=== PATIENT | male | born 1955 | race Caucasian/White ===

== ENCOUNTER → 2022-02-11 12:04 | Outpatient (BNVA) | payer MEDICARE, BC, SELFPAY | PROVIDERS: Visit Provider Nurse Practitioner Family | DX: I10 Essential (primary) hypertension (principal); J32.0 Chronic maxillary sinusitis; R05.9 Cough, unspecified; J45.909 Unspecified asthma, uncomplicated; E11.9 Type 2 diabetes mellitus without complications; Z11.52 Encounter for screening for COVID-19 | CPT/HCPCS: 80053; 87635 ==

== ENCOUNTER 2022-10-01 20:57 | Emergency (ER) | payer MEDICARE, BC, SELFPAY ==
--- NOTE | 2022-10-01 21:05 | XRR_ITS ---
PROCEDURE INFORMATION: Exam: XR Chest Exam date and time: 10/01/2022 10:33 PM Age: 67 years old Clinical indication: Other: General weakness TECHNIQUE: Imaging protocol: Radiologic exam of the chest. Views: 1 view. COMPARISON: No relevant prior studies available. FINDINGS: Lungs: See Heart/Mediastinum finding. Pleural spaces: Unremarkable. No pleural effusion. No pneumothorax. Heart/Mediastinum: Cardiomegaly and mild pulmonary vascular congestion. Bones/joints: Unremarkable. XR/XR chest 1V portable [id number] IMPRESSION: Cardiomegaly and mild pulmonary vascular congestion.
[2022-10-01 21:16] LABS: Basophils # 0.1 10^3/uL (0.0-0.1); Basophils % 0.4 %; Eosinophils % 0.1 %; Hematocrit 33.9 % (42.0-52.0); Hemoglobin 11.1 g/dL (11.7-16.6); Mean Corpuscular HGB Conc 32.7 g/dL (30.0-36.0); Mean Corpuscular Hemoglobin 26.4 pg (28.0-34.0); Mean Corpuscular Volume 80.5 fl (80-94); Mean Platelet Volume 11.6 fL (7.4-10.4); Monocytes # 0.8 10^3/uL (0.2-0.9); Monocytes % 6.6 %; Neutrophils # 10.71 10^3/uL (1.8-7.7); Neutrophils % 84.5 %; Nucleated Red Blood Cells % 0 %; Platelet Count 160 10^3/cmm (130-400); Red Blood Count 4.21 10^6/uL (4.1-5.3); Red Cell Distribution Width 14.6 % (12.1-15.1); White Blood Count 12.7 10^3/uL (4.0-10.0)
[2022-10-01 21:31] VITALS: BP 132/71; PULSE 90; RESP 19; TEMP 38.3; O2SAT 96; BMI 35.2
[2022-10-01 21:37] LABS: Alanine Aminotransferase 18 U/L (0-41); Albumin Level 4.2 g/dL (3.5-5.2); Alkaline Phosphatase 100 U/L (40-130); Anion Gap 21.6 (5-19); Aspartate Amino Transferase 17 U/L (0-40); Blood Urea Nitrogen 17 mg/dL (8-23); Calcium 9.1 mg/dL (8.5-10.5); Carbon Dioxide 21 mmol/L (22-29); Chloride 91 mmol/L (98-107); Globulin 2.8 g/dL (1.3-4.6); Glomerular Filtration Rate 60.6 mL/min (90-130); Glucose 150 mg/dL (65-115); Osmolality Calculated 272 mOsm/kg (285-295); Potassium 4.6 mmol/L (3.5-5.1); Sodium 129 mmol/L (136-145)
--- NOTE | 2022-10-01 21:37 | ECG_ITS ---
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 Measurements Intervals Lucas Rate: 93 P: -1 AR: 208 QRS: 57 QRSD: 84 T: 12 QT: 317 QTc: 396 Interpretive Statements SINUS RHYTHM No previous ECG available for comparison Electronically Signed On 10-02-2022 14:22:08 REGIONAL LIAISON by Paul Decker M.D. [id number]
--- NOTE | 2022-10-01 23:18 | CTR_ITS ---
PROCEDURE INFORMATION: Exam: CT Head Without Contrast Exam date and time: 10/01/2022 11:43 PM Age: 67 years old Clinical indication: Syncope and collapse; Patient HX: Syncope with fall yesterday. C/O general weakness. Denies any head pain. ; Additional info: AMS TECHNIQUE: Imaging protocol: Computed tomography of the head without contrast. Radiation optimization: All CT scans at this facility use at least one of these dose optimization techniques: automated exposure control; mA and/or kV adjustment per patient size (includes targeted exams where dose is matched to clinical indication); or iterative reconstruction. REPORTING DATA: Count of CT and Cardiac NM exams in prior 12 months: This patient has received 0 known CTs and 0 known cardiac nuclear medicine studies in the 12 months prior to the current study. COMPARISON: No relevant prior studies available. RADIATION DOSE METRICS: Total DLP (mGy-cm): 1075.28 FINDINGS: Brain: Normal. No hemorrhage. Unremarkable white matter. No mass effect. Cerebral ventricles: No ventriculomegaly. Paranasal sinuses: Paranasal sinus opacifications. Mastoid air cells: Visualized mastoid air cells are well aerated. Bones/joints: Unremarkable. No acute fracture. Soft tissues: Unremarkable. CT/CT head wo con* [id number] IMPRESSION: Negative for intracranial hemorrhage or mass effect.
[2022-10-01] MEDS: acetaminophen 325 mg Tablet 650 MG PO (23:39)
--- NOTE | 2022-10-01 23:39 | ED_ITS ---
HPI - Weakness General: Chief complaint: Weakness Stated complaint: fall, weakness Time Seen by Provider: 10/01/22 22:24 Source: patient and EMS Mode of arrival: EMS Limitations: no limitations History of Present Illness: 67-year-old male states he has been having some generalized weakness throughout the day states he went outside to do some work and had a near syncopal event he states that he is just felt weaker and had a harder time walking he had a mild headache he denies any vomiting or diarrhea he has had a low-grade fever at home he is febrile here as well. He denies any neck pain denies any worsening improving factors. Associated symptoms: Reports fever(s); Denies chest pain, dysuria, easy bruising, headache(s), nausea or vomiting Review of Systems Const: Reports: fever(s), fatigue and malaise Eyes: Denies: blurry vision or eye discomfort ENMT: Denies: throat pain or dental pain Card: Denies: chest pain Resp: Denies: dyspnea GI: Denies: abdominal pain, nausea, vomiting or diarrhea : Denies: dysuria Musc: Denies: neck pain or back pain Skin/Breast: Denies: rash Neuro: Denies: headache(s) Psych: Denies: depression Armando/Lymph: Denies: easy bruising All/Imm: Denies: urticaria PFSH ED PFSH: Medical History Asthma Diabetes GERD (gastroesophageal reflux disease) Hypertension Restless leg Social History Smoking and tobacco status: never smoked Physical Exam Const: COMMON NORMALS: no acute distress, patient oriented x3 and healthy appearing HENMT: COMMON NORMALS: normocephalic and atraumatic HEAD & SCALP: normocephalic and atraumatic Eye: COMMON NORMALS: Equal, round and reactive pupils present and EOMs intact bilaterally PUPIL: Yes Equal, round and reactive pupils present Neck/C-Spine: COMMON NORMALS: full ROM and supple Chest: COMMONS NORMALS: normal inspection of the chest and normal palpation of entire chest wall Resp: COMMON NORMALS: normal respiratory effort, No retractions, No use of accessory muscles and clear to auscultation bilaterally AUSCULTATION: clear t o auscultation bilaterally Cardio: COMMON NORMALS: regular rate, regular rhythm and No murmurs present (Cardio) RATE: regular rate RHYTHM: regular rhythm GI: COMMON NORMALS: Normal to inspection, nondistended, normoactive bowel sounds present, Soft to palpation, non-tender and no masses PALPATION: Yes Soft to palpation Extremity: COMMON NORMALS: normal to inspection and full ROM Neuro: COMMON NORMALS: patient oriented x3, moves all extremities and no focal motor deficits Psych: COMMON NORMALS: mental status grossly normal, Normal thought process present and cooperative THOUGHT PROCESS: Normal thought process present Skin: COMMON NORMALS: no rashes or lesions noted and no wounds GENERAL SKIN EXAM: no rashes or lesions noted Course Vital Signs: Vital signs: Vital Signs Temperature 100.9 F H 10/01/22 21:31 Pulse Rate 86 10/02/22 00:39 Respiratory Rate 22 H 10/02/22 00:39 Blood Pressure 117/53 10/02/22 00:39 Pulse Oximetry 93 10/02/22 00:39 Oxygen Delivery Me thod 10/01/22 21:31 MDM - Weakness Medical Decision Making Patient presents here with generalized weakness he does have a low-grade fever here blood work is all normal no signs of infection possibly viral infection he is able ambulate here his weakness is improved he is stable for discharge he is to follow-up his PCP and return if worsening understands agrees plan. Lab Data 10/01/22 21:00 10/01/22 21:00 Radiology Impressions Chest X-Ray 10/01/22 21:05 IMPRESSION: Cardiomegaly and mild pulmonary vascular congestion. Head CT 10/01/22 23:18 IMPRESSION: Negative for intracranial hemorrhage or mass effect. Laboratory Results WBC 12.7 10^3/uL (4.0-10.0) H 10/01/22 21:00 RBC 4.21 10^6/uL (4.1-5.3) 10/01/22 21:00 Hgb 11.1 g/dL (11.7-16.6) L 10/01/22 21:00 Hct 33.9 % (42.0-52.0) L 10/01/22 21:00 MCV 80.5 fl (80-94) 10/01/22 21:00 MCH 26.4 pg (28.0-34.0) L 10/01/22 21:00 MCHC 32.7 g/dL (30.0-36.0) 10/01/22 21:00 RDW 14.6 % (12.1-15.1) 10/01/22 21:00 Plt Count 160 10^3/cmm (130-400) 10/01/22 21:00 MPV 11.6 fL (7.4-10.4) H 10/01/22 21:00 Neut % (Auto) 84.5 % 10/01/22 21:00 Lymph % (Auto) 8.0 % 10/01/22 21:00 Meigs % (Auto) 6.6 % 10/01/22 21:00 Eos % (Auto) 0.1 % 10/01/22 21:00 Baso % (Auto) 0.4 % 10/01/22 21:00 Neut # (Auto) 10.71 10^3/uL (1.8-7.7) H 10/01/22 21:00 Lymph # (Auto) 1.0 10^3/uL (0.8-4.8) 10/01/22 21:00 Meigs # (Auto) 0.8 10^3/uL (0.2-0.9) 10/01/22 21:00 Eos # (Auto) 0.0 10^3/uL (0.0-0.8) 10/01/22 21:00 Baso # (Auto) 0.1 10^3/uL (0.0-0.1) 10/01/22 21:00 Nucleated RBC % (auto) 0 % 10/01/22 21:00 Nucleated RBCs # 0.0 /100WBC 10/01/22 21:00 Sodium 129 mmol/L (136-145) L 10/01/22 21:00 Potassium 4.6 mmol/L (3.5-5.1) 10/01/22 21:00 Chloride 91 mmol/L (98-107) L 10/01/22 21:00 Carbon Dioxide 21 mmol/L (22-29) L 10/01/22 21:00 Anion Gap 21.6 (5-19) H 10/01/22 21:00 BUN 17 mg/dL (8-23) 10/01/22 21:00 Creatinine 1.2 mg/dL (0.7-1.2) 10/01/22 21:00 GFR Calculation 60.6 mL/min (90-130) L 10/01/22 21:00 Glucose 150 mg/dL (65-115) H 10/01/22 21:00 Calculated Osmolality 272 mOsm/kg (285-295) L 10/01/22 21:00 Calcium 9.1 mg/dL (8.5-10.5) 10/01/22 21:00 Total Bilirubin 1.0 mg/dL (0.15-1.2) 10/01/22 21:00 AST 17 U/L (0-40) 10/01/22 21:00 ALT 18 U/L (0-41) 10/01/22 21:00 Alkaline Phosphatase 100 U/L (40-130) 10/01/22 21:00 Troponin T Baseline 17 ng/L (0-15) H 10/01/22 21:00 Troponin T 120 Minute 19.91 ng/L (0-15) H 10/02/22 00:08 Delta Troponin T 2.91 ABS# (0-10) 10/02/22 00:08 Total Protein 7.0 g/dL (6.6-8.7) 10/01/22 21:00 Albumin 4.2 g/dL (3.5-5.2) 10/01/22 21:00 Globulin 2.8 g/dL (1.3-4.6) 10/01/22 21:00 Urine Color Yellow (Yellow) 10/02/22 00:08 Urine Appearance Clear (CLEAR) 10/02/22 00:08 Urine pH 8 (5-7) H 10/02/22 00:08 Ur Specific [place] 1.010 (1.005-1.030) 10/02/22 00:08 Urine Protein Neg (Negative) 10/02/22 00:08 Urine Glucose (UA) Norm (Normal) 10/02/22 00:08 Urine Ketones Negative (Negative) 10/02/22 00:08 Urine Blood Neg (Negative) 10/02/22 00:08 Urine Nitrate Negative (Negative) 10/02/22 00:08 Urine Bilirubin Neg (Negative) 10/02/22 00:08 Prot Sulfosalicylic Acd Negative (Negative) 10/02/22 00:08 Urine Urobilinogen Norm mg/dL (Negative) 10/02/22 00:08 Ur Leukocyte Esterase Negative (Negative) 10/02/22 00:08 Ethyl Alcohol < 10 mg/dL (0-10) 10/01/22 21:00 Influenza Type A Ag negative (Negative) 10/02/22 00:00 Influenza Type B Ag negative (Negative) 10/02/22 00:00 SARS-CoV-2 Ag (Rapid) negative (Negative) 10/02/22 00:00 EKG Data EKG 1: I personally reviewed and interpreted this EKG as follows: EKG interpretation date: 10/01/22 EKG interpretation time: 21:37 Interpretation: Normal sinus rhythm heart rate [address] or T wave abnormalities QRS 84 QTc 368 Discharge Plan Discharge Patient Disposition: Home Clinical Impression: Weakness Condition: Stable Prescriptions: No Action methylprednisolone [Medrol (Brandon)] 4 mg tablets,dose pack See Rx Instructions PO PER PKG DIR Qty: 21 0RF Rx Instructions: PO PER PKG DIR azithromycin [Zithromax Z-Brandon] 250 mg tablet See Rx Instructions PO .COMPLEX Qty: 6 0RF Rx Instructions: For 250 mg dose pack: take 500 mg today (day 1), then 250 mg for 4 days (days 2-5) PO promethazine-DM 6.25-15 mg/5 mL syrup 5 - 10 ml PO Q6H PRN (Reason: cough) Qty: 200 1RF benzonatate 100 mg capsule 100 mg PO TID PRN (Reason: cough) Qty: 90 1RF Discharge Orders: Discharge ED (Routine); Ordered 10/02/22 Ordered By: Kosta Mora Discharge Diet: Advance as tolerated Discharge Activity: Resume usual activity Patient Instructions: Weakness (ED) Coding Level of Care Code 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
[2022-10-01] MEDS: sodium chloride 0.9% 500 ML 999 ML IV (23:40)
[2022-10-02 00:15] LABS: Add Urine Microscopic? NO; Charge for UA Resulting for Rev
[2022-10-02 00:16] LABS: Troponin(5th) Baseline 17 ng/L (0-15)
[2022-10-02 00:18] LABS: Alcohol Level < 10 mg/dL (0-10)
[2022-10-02 00:28] LABS: Bilirubin Urine Neg (Negative); Blood Urine Neg (Negative); Glucose Urine UA Norm (Normal); Ketones Urine Negative (Negative); Leukocyte Esterase Urine Negative (Negative); Nitrate Urine Negative (Negative); Protein Urine Neg (Negative); Sulfosalicylic Acid Urine Negative (Negative); Urine Appearance Clear (CLEAR); Urine Color Yellow (Yellow); Urobilinogen Urine Norm (Negative); pH Urine 8 (5-7)
[2022-10-02 00:33] LABS: Troponin 5 2HR 19.91 ng/L (0-15)
[2022-10-02 00:34] LABS: Influenza A by IFA negative (Negative); Influenza B by IFA negative (Negative); SARS Covid-2 Antigen negative (Negative)
[2022-10-02 00:39] VITALS: BP 117/53; PULSE 86; RESP 22; O2SAT 93
[2022-10-02 00:40] LABS: Troponin 5 2HR Delta 2.91 ABS# (0-10)
== END 2022-10-02 00:56 | disposition home or self-care (01) ==
PROVIDERS: Emergency Provider Emergency Medicine
DX: R53.1 Weakness (principal)
CPT/HCPCS: 70450; 71045; 80053; 80307; 81003; 84484; 85025; 87426; 87804; 93005; 96360; 99285; J7040

== ENCOUNTER → 2023-01-16 13:20 | Outpatient (BNVA) | payer MEDICARE, BC, SELFPAY | PROVIDERS: Visit Provider Internal Medicine Pulmonary Disease | DX: J30.2 Other seasonal allergic rhinitis (principal); R06.02 Shortness of breath | CPT/HCPCS: 36415; 82785; 86003; 99204 ==

== ENCOUNTER 2023-01-23 06:42 | Outpatient (CLI) | payer MEDICARE, BC, SELFPAY ==
[2023-01-23 07:20] VITALS: PULSE 78; RESP 18; O2SAT 98
[2023-01-23 07:25] VITALS: PULSE 82
== END 2023-01-23 06:43 | disposition home or self-care (01) ==
LOC: RT 06:45
PROVIDERS: PCP Family Medicine; Visit Provider Internal Medicine Pulmonary Disease
DX: R06.02 Shortness of breath (principal)
CPT/HCPCS: 94060; 94618; 94726; 94729; J7613